=== PATIENT | female | born 1975 | race Caucasian/White ===

== ENCOUNTER 2021-07-01 08:46 | Outpatient (CLI) | payer BC | END 2021-07-01 08:47 | disposition home or self-care (01) | LOC: CSHULT 08:46 | PROVIDERS: ATTEND Student in an Organized Health Care Education/Training Program | DX: N63.10 Unspecified lump in the right breast, unspecified quadrant (principal); N63.20 Unspecified lump in the left breast, unspecified quadrant ==

== ENCOUNTER 2021-08-03 10:46 | Day surgery (SDC) | payer BC ==
[2021-07-29 17:21] LABS: BHCG - Serum Negative (NEGATIVE); Hemoglobin 13.8 g/dL (12.0-15.5); Mean Corpuscular HGB CONC 34.2 g/dL (32.0-36.0); Mean Corpuscular Hemoglobin 33.7 pg (27.0-33.0); Mean Corpuscular Volume 98.5 fl (81.6-98.3); Mean Platelet Volume 9.9 fl (7.4-10.4); Platelet Count 310 10x3/uL (150-450); Pregs Control Background? CLEAR/WHITE (CLR/WHITE); Pregs Control Bar Appear? YES (CONTROL BAR); RBC Distribution Width 11.9 % (11.5-14.5); Red Blood Cell (RBC) Count 4.09 10x6/uL (3.90-5.03); White Blood Cell (WBC) Count 8.7 10x3/uL (3.5-10.5)
[2021-07-30 11:23] LABS: SARS-CoV-2 PCR by NAA Not Detected (NotDetected)
[2021-07-30 13:22] VITALS: BMI 25.9
[2021-08-03] MEDS ORDERED: Gabapentin 300 MG CAP ONE (11:13)
[2021-08-03] MEDS ORDERED: CeleCOXIB 100 MG CAP ONE (11:13)
[2021-08-03] MEDS ORDERED: Lidocaine 1% MPF 2 ML VIAL ONE (11:13)
[2021-08-03] MEDS ORDERED: Famotidine/PF 20 mg/2ml Vial ONE (11:14)
[2021-08-03] MEDS ORDERED: Rocuronium Bromide 10 MG/ML (10ML VIAL) ONE (12:59)
[2021-08-03] MEDS ORDERED: PROPOFOL 20 ML ONE (12:59)
[2021-08-03] MEDS ORDERED: Lidocaine 1% PF 5 ML VIAL ONE (12:59)
[2021-08-03] MEDS ORDERED: Midazolam HCl 2 mg/2 ml Vial ONE (13:00)
[2021-08-03] MEDS ORDERED: Dexamethasone 20 MG/5 ML VIAL ONE (13:02)
[2021-08-03] MEDS ORDERED: Ondansetron PF 4 MG/2 ML Vial ONE (13:02)
[2021-08-03] MEDS ORDERED: Fentanyl 250 MCG/5 ML VIAL ONE (13:03)
[2021-08-03] MEDS ORDERED: EPINEPHrine 1 MG/ML AMP ONE (13:04)
[2021-08-03] MEDS ORDERED: Bupivacaine PF 0.5% 30 ML VIAL ONE (13:04)
[2021-08-03] MEDS ORDERED: Promethazine HCl 25 MG/ML VIAL ONE (13:06)
[2021-08-03] MEDS ORDERED: CEFAZOLIN 1 GM VIAL ONE (13:42)
[2021-08-03] MEDS ORDERED: PHENYLEPHRINE-NS 100 MCG/ML 10 ML SYRINGE ONE (13:42)
[2021-08-03] MEDS ORDERED: Ondansetron PF 4 MG/2 ML Vial IVP PRN (13:45)
[2021-08-03] MEDS ORDERED: Promethazine HCl 25 MG/ML VIAL IM PRN (13:45)
[2021-08-03] MEDS ORDERED: Glycopyrrolate 0.2 MG/ML 5 ML SYRINGE ONE (14:28)
[2021-08-03] MEDS ORDERED: Ropivacaine 0.2% 550 ML 550 ML NERVE BLCK SCH (14:30)
[2021-08-03] MEDS ORDERED: Fentanyl 100 MCG/2 ML VIAL ONE (15:02)
== END 2021-08-03 17:00 | disposition home or self-care (01) ==
LOC: CSHSDC 10:46
PROVIDERS: ATTEND Student in an Organized Health Care Education/Training Program
PROC: 0UT94ZZ Resection of Uterus, Percutaneous Endoscopic Approach (ICD-10-PCS; principal; 2021-08-03)
PROC: 0UT74ZZ Resection of Bilateral Fallopian Tubes, Percutaneous Endoscopic Approach (ICD-10-PCS; principal; 2021-08-03)
DX: N80.0 Endometriosis of uterus (principal); N83.8 Other noninflammatory disorders of ovary, fallopian tube and broad ligament; I10 Essential (primary) hypertension; Z87.891 Personal history of nicotine dependence; Z79.899 Other long term (current) drug therapy; Z20.822 Contact with and (suspected) exposure to COVID-19
CPT/HCPCS: 36415; 84703; 85027; 86850; 86900; 86901; 88307; A4306; J0171; J0690; J1100; J2250; J2405; J2550; J2704; J2795; J3010; S0020; S0028; U0003; U0005